=== PATIENT | male | born 1970 | race African-American/Black ===

== ENCOUNTER 2024-01-06 11:13 | Emergency (ER) | payer MEDICAID, SELFPAY ==
[2024-01-06] VITALS (14 sets, daily range): BP systolic 113–148; BP diastolic 79–98; PULSE 86–97; RESP 13–20; TEMP 36.7; O2SAT 97–100
--- NOTE | ~2024-01-06 | XR_ITS ---
XR chest 1V portable Ordering provider: Al Torres MD History: 53 years Male with . hyperglycemia . Comparison: None. FINDINGS: MEDIASTINUM: The cardiac silhouette is not enlarged. LUNGS: No infiltrates, effusions or pneumothorax. OTHER: No free air under the diaphragm. Degenerative changes of the spine. IMPRESSION: No acute cardiopulmonary pathology. Reviewed, dictated and finalized at location A.
[2024-01-06 11:20] LABS: Glucose Point of Care 262 mg/dl (65-105)
--- NOTE | 2024-01-06 11:21 | PC.NURSE ---
Patient states he has not been able to take his medication daily due to moving and his medication being in [place]. Patient states he has not had any insulin in almost a month .
[2024-01-06] MEDS: ONDANSETRON INJ 4 MG/2 ML VIAL IV PUSH (11:47)
[2024-01-06] MEDS: SODIUM CHLORIDE 0.9% IV 2,000 ML 999 ML IV CONT (11:47)
--- NOTE | 2024-01-06 11:54 | PC.NURSE ---
Pt states he does not have a PMD local or in [place]. States when his blood sugar gets elevated he goes to Urgent Care they sent him to ER. RN asked pt when he gets RX's where he goes to get them filled. Pt states he can't remember the name of the pharmacy. Dr. Torres informed.
[2024-01-06 11:57] LABS: Basophils Absolute Auto 0.1 K/mm3 (0.0-0.1); Basophils Percent Auto 0.6 % (0.2-1.2); Eosinophils Absolute Auto 0.3 K/mm3 (0-0.3); Hemoglobin 13.9 g/dL (14.0-18.0); Immature Granulocyte Absolute 0.02 K/mm3 (0.00-0.031); Immature Granulocyte Percent A 0.2 % (0-0.5); Lymphocytes Absolute Auto 2.29 K/mm3 (0.9-3.2); Lymphocytes Percent Auto 27.9 % (18.3-44.2); Mean Corpuscular HGB Conc 32.3 g/dl (32-36); Mean Corpuscular Hemoglobin 29.5 pg (26-34); Mean Corpuscular Volume 91.3 fl (80-100); Mean Platelet Volume 12.8 fl (7.4-10.4); Monocytes Absolute Auto 0.6 K/mm3 (0.1-0.6); Monocytes Percent Auto 7.3 % (2.6-8.5); Neutrophils Absolute Auto 4.9 K/mm3 (1.3-6.7); Platelet Count Result 153 k/mm3 (150-375); Red Blood Count 4.71 M/mm3 (4.6-6.20); Red Cell Distribution Width 12.7 % (11.5-14.5); White Blood Count 8.2 K/mm3 (4.5-10.0)
[2024-01-06 12:40] LABS: Influenza A QL RT-PCR Negative (Negative); Influenza B QL RT-PCR Negative (Negative); RSV RNA, RT-PCR Negative (Negative); SARS-CoV-2 RNA PCR Negative (Negative)
[2024-01-06 12:47] LABS: Alanine Aminotransferase 16 U/L (6-50); Albumin Level 3.7 g/dL (3.5-5.1); Alkaline Phosphatase 111 U/L (38-126); Anion Gap 10 mmol/L (4-12); Aspartate Amino Transferase 23 U/L (17-59); Bilirubin,Total 0.7 mg/dL (0.2-1.3); Blood Urea Nitrogen 18 mg/dL (9-20); Carbon Dioxide 24 mmol/L (22-30); Chloride 100 mmol/L (98-107); Estimated CRCL calculation 87 ml/min; Estimated Glomerular Filt Rate > 60; Glucose 290 mg/dL (65-110); Potassium 5.4 mmol/L (3.4-5.0); Sodium 134 mmol/L (137-145)
--- NOTE | 2024-01-06 12:57 | ED.GENADULT ---
HPI - General Adult General Chief complaint: Recheck/Abnormal Lab/Rx Stated complaint: high blood sugar Time Seen by Provider: 01/06/24 11:35 History of Present Illness HPI narrative: Patient has poor insight his medical condition. This is a 53-year-old male history of type 2 diabetes presenting for elevated glucose. He moved here from [place] and did not bring any of his medications. He is not taking his metformin and insulin in about 1 month. Current complaints are increased urinary frequency, blurry vision and fatigue. No fevers chills chest pain difficulty breathing abdominal pain nausea vomiting or diarrhea. Related Data Allergies Allergy/AdvReac Type Severity Reaction Status Date / Time No Known Allergies Allergy Verified 01/06/24 11:34 Exam Narrative: APPEARANCE: No apparent distress. Head: atraumatic. EYES: EOMI, NOSE: Atraumatic NECK: Trachea midline RESPIRATORY: No increased rate of breathing clear to auscultation CARDIOVASCULAR: RRR, no peripheral edema ABDOMINAL: Non-distended soft nontender MUSCULOSKELETAl: No obvious deformities NEURO: Alert. Moving 4/4 extremities SKIN:: Warm, dry. Normal color PSYCHIATRIC: Normal affect Course Vital Signs Vital signs: Vital Signs Temperature 98.1 F 01/06/24 11:15 Pulse Rate 97 01/06/24 11:15 Respiratory Rate 16 01/06/24 11:15 Blood Pressure 113/79 01/06/24 11:15 Pulse Oximetry 97 01/06/24 11:15 Oxygen Delivery Room Air 01/06/24 11:15 Temperature 98.1 F 01/06/24 11:15 Pulse Rate 97 01/06/24 11:15 Respiratory Rate 16 01/06/24 11:15 Blood Pressure 113/79 01/06/24 11:15 Pulse Oximetry 97 01/06/24 11:15 Oxygen Delivery Room Air 01/06/24 11:15 Medical Decision Making [facility] Narrative Medical decision making narrative: -Course: 53-year-old diabetic presenting after medication and noncompliance for the last month. Labs reviewed with no evidence of HHS or DKA. Unfortunately the patient does not know his insulin dosing. Patient will be prescribed metformin and lisinopril and instructed to follow-up with a primary care physician. Given return precautions. -DDX includes but is not limited to: HHS, DKA, hyperglycemia diabetes, dehydration -Co-morbidities complicating care: Diabetes, hypertension -Independent interpretation of studies: Labs reviewed. No evidence of HHS DKA. Potassium elevated at 5.4. Kidney function is normal. No EKG changes. Viral swabs negative. Independent EKG interpretation: Rhythm [sinus], Rate 85, [place] -[normal], [place] -[normal], QRS [narrow], QTC [normal], T waves -[negative for concerning inversions], ST Segments - [Negative for concerning elevations] Final interpretations: [Normal Sinus Rhythm] Chest x-ray - Negative -Interventions: 2 L NS, Zofran -Shared decision making / Disposition:discharged -RX:Metformin/lisinopril Vital Signs Vital Signs: Vital Signs Temperature 98.1 F 01/06/24 11:15 Pulse Rate 97 01/06/24 11:15 Respiratory Rate 16 01/06/24 11:15 Blood Pressure 113/79 01/06/24 11:15 Pulse Oximetry 97 01/06/24 11:15 Oxygen Delivery Room Air 01/06/24 11:15 Temperature 98.1 F 01/06/24 11:15 Pulse Rate 97 01/06/24 11:15 Respiratory Rate 16 01/06/24 11:15 Blood Pressure 113/79 01/06/24 11:15 Pulse Oximetry 97 01/06/24 11:15 Oxygen Delivery Room Air 01/06/24 11:15 Lab Data 01/06/24 11:49 01/06/24 11:49 Labs: Lab Results 01/06/24 01/06/24 Range/Units 11:17 11:49 WBC 8.2 (4.5-10.0) K/mm3 RBC 4.71 (4.6-6.20) M/mm3 Hgb 13.9 L (14.0-18.0) g/dL Hct 43.0 (42.0-52.0) % MCV 91.3 (80-100) fl MCH 29.5 (26-34) pg MCHC 32.3 (32-36) g/dl RDW 12.7 (11.5-14.5) % Plt Count 153 (150-375) k/mm3 MPV 12.8 H (7.4-10.4) fl Immature Gran % (Auto) 0.2 (0-0.5) % Neut % (Auto) 60.0 (45.5-73.1) % Lymph % (Auto) 27.9 (18.3-44.2) % Pershing % (Auto) 7.3 (2.6-8.5) %
--- NOTE | 2024-01-06 13:00 | ECG_ITS ---
Test Date: 2024-01-06 13:25:04 Measurements Intervals [place] Rate: 85 P: 55 MT: 120 QRS: -11 QRSD: 93 T: 61 QT: 356 QTc: 426 Interpretive Statements SINUS RHYTHM INCOMPLETE RIGHT BUNDLE BRANCH BLOCK BORDERLINE ECG No previous ECG available for comparison Electronically Signed On 01-06-2024 13:30:05 CDT by Chay Sampson D.O.
[2024-01-06 13:34] LABS: Glucose Point of Care 223 mg/dl (65-105)
[2024-01-06 13:38] LABS: Appearance Urine Clear (Clear); Bacteria Urine None Seen /hpf; Bilirubin Urine Negative (Negative); Blood Urine Negative (Negative); Color Urine Yellow (Yellow); Glucose Urine UA 3+ mg/dL (Negative); Ketones Urine Trace mg/dL (Negative); Leukocyte Esterase Ur Negative LEU/UL (Negative); Nitrate Urine Negative (Negative); Non Pathogenic Casts 0-2; Protein Urine Trace mg/dL (Negative); Specific Grav Ur 1.035 (1.001-1.035); Squamous Epithelial Cell Urine None Seen /hpf (Few); WBC Urine 0-5 /hpf (0-3)
[2024-01-06 13:44] LABS: Add Urine Microscopic? YES
[2024-01-06 15:31] LABS: Lipase 37 U/L (23-300); Magnesium 1.8 mg/dL (1.6-2.3)
== END 2024-01-06 13:41 | disposition home or self-care (01) ==
PROVIDERS: Emergency Provider Emergency Medicine
DX: E11.65 Type 2 diabetes mellitus with hyperglycemia (principal); Z91.148 Patient's other noncompliance with medication regimen for other reason; Z20.822 Contact with and (suspected) exposure to COVID-19
CPT/HCPCS: 36415; 71045; 80053; 81001; 82948; 83690; 83735; 85025; 87637; 93005; 96361; 96374; 99284; J2405; J7030